=== PATIENT | female | born 1970 ===

== ENCOUNTER 2025-02-23 05:06 | Day surgery (SDC) | payer OTHER ==
[2025-02-03 07:42] VITALS: BP 153/69
[2025-02-03 07:42] LABS: URINE APPEARANCE Clear; URINE BILIRRUBIN Negative (NEGATIVE); URINE BLOOD Negative; URINE COLOR Yellow; URINE GLUCOSE Negative (NEGATIVE); URINE KETONE Negative (NEGATIVE); URINE LEUKOCYTE Negative; URINE NITRATE Negative; URINE PROTEIN Negative (NEGATIVE); URINE UROBILINOGEN 0.2 E.U./dl
[2025-02-03 07:43] LABS: HEMATOCRIT 42.1 % (36.0-45.00); HEMOGLOBIN 13.8 g/dL (12.0-15.00); MEAN CELL VOLUME 80.4 fL (80.00-100.00); MEAN CORPUSCULAR HEMOGLOBIN 26.3 pg (27.00-32.0); MEAN CORPUSCULAR HGB CONC 32.7 g/dl (32.0-36.0); PLATELET COUNT 260 K/uL (150-450); RED BLOOD COUNT 5.23 M/uL (4.00-6.00); RED CELL DISTRIBUTION WIDTH 14.2 % (11.5-14.5)
[2025-02-03 07:46] LABS: URINE BACTERIA 569.1 uL (0.0-1933); URINE EPITHELIAL CELLS 38.9 uL (0.0-38.8); URINE RBC 2.9 uL (0.0-20.8); URINE WBC 2.8 uL (0.0-23.2)
[2025-02-03 08:06] LABS: INR 0.97; PARTIAL THROMBOPLASTIN TIME 28.6 SECONDS (22.0-34.0); PROTHROMBIN TIME 10.6 SECONDS (9.0-11.5)
[2025-02-03 08:08] LABS: ALBUMIN 3.6 gm/dL (3.4-5.0); BILIRUBIN TOTAL 0.51 mg/dL (0.3-1.2); CALCIUM 9.2 mg/dL (8.5-10.1); CREATININE SERUM 0.77 mg/dL (0.55-1.02); GFR 77.54; GLOBULINA 3.3 G/DL (2.4-3.5); POTASSIUM 4.35 mEq/L (3.5-5.1); TOTAL PROTEIN 6.9 gm/dL (6.4-8.2)
[2025-02-03 08:27] LABS: URINE CAST 0.14 uL (0.0-1.40)
[~2025-02-23] VITALS: Ht 157.5 cm; Wt 82.6 kg
[~2025-02-23 05:06] MED LIST: ACTIVELLA 1 MG1 EACH; ELETRIPTAN HBR20 MG; LIPITOR20 MG; LOREEV XR2 MG PO; RESTORIL30 M1 PO; TEGRETOL XR200 MG; ZESTRIL10 M1 PO
[2025-02-23] MEDS ORDERED: LIDOCAINE HCL 1%/EPINEPHRINE 20ML VIAL IJ ONE ×2 (09:52→10:15)
[2025-02-23] MEDS ORDERED: CEFAZOLIN SODIUM 1,000 MG VIAL ONE (09:52)
[2025-02-23] MEDS ORDERED: CEFAZOLIN SODIUM 1,000 MG VIAL IV ONE (10:15)
[2025-02-23] MEDS ORDERED: BUPIVACAINE HCL 30 ML VIAL IJ ONE (10:15)
[2025-02-23] MEDS ORDERED: BUPIVACAINE HCL/MPF 0.5% 30ML VIAL ONE (10:16)
[2025-02-23] MEDS ORDERED: SUGAMMADEX SODIUM 200 MG/2 ML VIAL IV ONE (11:13)
[2025-02-23] MEDS ORDERED: MORPHINE SULFATE 4 MG/ML VIAL IV ONE ×2 (11:45→12:15)
== END 2025-02-23 13:25 | disposition home or self-care (01) ==
LOC: CIR.AMB 05:06
PROVIDERS: ATTEND Orthopaedic Surgery
DX: M75.122 Complete rotator cuff tear or rupture of left shoulder, not specified as traumatic (principal); M24.112 Other articular cartilage disorders, left shoulder; M75.22 Bicipital tendinitis, left shoulder; I10 Essential (primary) hypertension; E78.5 Hyperlipidemia, unspecified